=== PATIENT | female | born 1975 | race Caucasian/White ===

== ENCOUNTER 2018-12-31 16:37 | Emergency (ER) | payer SELFPAY ==
--- NOTE | 2018-12-31 17:23 | ER Document Report ---
ED Medical Screen (RME) - General Chief Complaint: Abdominal Pain Stated Complaint: ABDOMINAL PAIN Time Seen by Provider: 12/31/18 17:13 Notes: 43-year-old female with history of KASANDRA and cholecystectomy presents the emergency department with chief complaint of generalized abdominal pain. Patient cannot really specify where the pain is but after further clarification she said it started in the suprapubic area but is more generalized now. No fevers or chills, no nausea or vomiting, no urinary symptoms. Exam: Well-appearing in no acute distress, lungs are clear to auscultation in all haro, no CVAT bilateral I have greeted and performed a rapid initial assessment of this patient. A comprehensive ED assessment and evaluation of the patient, analysis of test results and completion of medical decision making process will be conducted by an additional ED providers. - Related Data Allergies/Adverse Reactions: Tetracyclines Allergy (Verified 12/31/18 17:02) acetaminophen [From Percocet] Adverse Reaction (Verified 12/31/18 17:02) naproxen [From Aleve] Adverse Reaction (Verified 12/31/18 17:02) oxycodone [From Percocet] Adverse Reaction (Verified 12/31/18 17:02) Physical Exam - Vital signs Vitals: Temp Pulse Resp BP Pulse Ox 98.6 F 90 20 151/89 H 98 12/31/18 16:48 12/31/18 16:48 12/31/18 16:48 12/31/18 16:48 12/31/18 16:48 Course - Vital Signs Vital signs: Temp Pulse Resp BP Pulse Ox 98.6 F 90 20 151/89 H 98 12/31/18 16:48 12/31/18 16:48 12/31/18 16:48 12/31/18 16:48 12/31/18 16:48
[2018-12-31 18:24] LABS: APPEARANCE,URINE CLOUDY; BILIRUBIN,URINE NEGATIVE (NEGATIVE); COLOR,URINE YELLOW; GLUCOSE, URINE NEGATIVE (NEGATIVE); KETONES,URINE NEGATIVE (NEGATIVE); LEUKOCYTE ESTERASE,URINE MODERATE (NEGATIVE); NITRITE,URINE NEGATIVE (NEGATIVE); PROTEIN,URINE 100 mg/dL (NEGATIVE); URINE SPECIFIC GRAVITY 1.014; UROBILINOGEN,URINE NEGATIVE mg/dL (<2.0)
[2018-12-31 18:34] LABS: ABSOLUTE BASOPHILS # (AUTO) 0.1 10^3/uL (0.0-0.2); ABSOLUTE EOSINOPHILS # (AUTO) 0.2 10^3/uL (0.0-0.6); ABSOLUTE LYMPHOCYTES (AUTO) 3.2 10^3/uL (0.5-4.7); BASOPHILS % (AUTO) 0.8 % (0-2); EOSINOPHILS % (AUTO) 1.1 % (0-6); HEMATOCRIT 46.4 % (36.0-47.0); HEMOGLOBIN 15.9 g/dL (12.0-15.5); LYMPHOCYTES % (AUTO) 20.4 % (13-45); MEAN CORPUSCULAR HEMOGLOBIN 29.8 pg (27.0-33.4); MEAN CORPUSCULAR HGB CONC 34.2 g/dL (32.0-36.0); MEAN CORPUSCULAR VOLUME 87 fl (80-97); MONOCYTES % (AUTO) 6.6 % (3-13); PLATELET COUNT 164 10^3/uL (150-450); RED BLOOD COUNT 5.32 10^6/uL (3.72-5.28); SEGMENTED NEUTROPHILS % (AUTO) 71.1 % (42-78); TOTAL CELLS COUNTED % (AUTO) 100 %; WHITE BLOOD COUNT 15.5 10^3/uL (4.0-10.5)
[2018-12-31 18:45] LABS: ALBUMIN 4.4 g/dL (3.5-5.0); ALKALINE PHOSPHATASE 57 U/L (38-126); ANION GAP 10 (5-19); ASPARTATE AMINO TRANSFERASE 27 U/L (14-36); BILIRUBIN,DIRECT 0.1 mg/dL (0.0-0.4); BILIRUBIN,TOTAL 0.4 mg/dL (0.2-1.3); BLOOD UREA NITROGEN 8 mg/dL (7-20); CALCIUM 9.9 mg/dL (8.4-10.2); CARBON DIOXIDE 25 mmol/L (22-30); CHLORIDE 109 mmol/L (98-107); GLUCOSE 92 mg/dL (75-110); POTASSIUM 4.1 mmol/L (3.6-5.0); TOTAL PROTEIN 7.9 g/dL (6.3-8.2)
[2018-12-31] MEDS ORDERED: CEFTRIAXONE 1 GM/D5W RTU 1 GM/50 ML RTUPB IV ONE (19:02)
[2018-12-31] MEDS ORDERED: IBUPROFEN 800 MG TABLET PO ONE (19:33)
--- NOTE | 2018-12-31 19:59 | ER Document Report ---
ED General - General Chief Complaint: Abdominal Pain Stated Complaint: ABDOMINAL PAIN Time Seen by Provider: 12/31/18 17:13 Notes: 43-year-old lady presents with abdominal pain this began early this morning a suprapubic pain and is spread to the entire lower abdomen. Left greater than right. No shortness of breath nausea vomiting diarrhea. No fever. History of hysterectomy but no other surgeries. Passing flatus. - Related Data Allergies/Adverse Reactions: Tetracyclines Allergy (Verified 12/31/18 17:02) acetaminophen [From Percocet] Adverse Reaction (Verified 12/31/18 17:02) naproxen [From Aleve] Adverse Reaction (Verified 12/31/18 17:02) oxycodone [From Percocet] Adverse Reaction (Verified 12/31/18 17:02) Past Medical History - Social History Smoking Status: Current Every Day Smoker Family History: None Patient has suicidal ideation: No Patient has homicidal ideation: No Past Surgical History: Reports: Hx Appendectomy Review of Systems - Review of Systems Notes: REVIEW OF SYSTEMS GEN: Denies fever, chills, weight loss ENT: Denies sore throat, nasal discharge, ear pain EYES: Denies blurry vision, eye pain, discharge CV: Denies chest pain, palpitations, edema RESP: Denies cough, shortness of breath, wheezing GI: As per HPI MSK: Denies joint pain/swelling, edema, SKIN: Denies rash, skin lesions LYMPH: Denies swollen glands/lymph nodes NEURO: Denies headache, focal weakness or numbness, dizziness PSYCH: Denies depression, suicidal or homicidal ideation PHYSICAL EXAMINATION General: No acute distress, well-nourished Head: Atraumatic, normocephalic ENT: Mouth normal, oropharynx moist, no exudates or tonsillar enlargement Eyes: Conjunctiva normal, pupils equal, lids normal Neck: No JVD, supple, no guarding CVS: Normal rate, regular rhythm, no murmurs Resp: No resp distress, equal and normal breath sounds bilaterally GI: Nondistended, soft, no tenderness to palpation, no rebound or guarding Ext: No deformities, no edema, normal range of motion in upper and lower ext Back: No CVA or midline TTP Skin: No rash, warm Lymphatic: No lymphadeopathy noted Neuro: Awake, alert. Face symmetric. GCS 15. Physical Exam - Vital signs Vitals: Temp Pulse Resp BP Pulse Ox 98.6 F 90 20 151/89 H 98 12/31/18 16:48 12/31/18 16:48 12/31/18 16:48 12/31/18 16:48 12/31/18 16:48 Course - Re-evaluation Re-evalutation: 12/31/18 23:31 Lower abdominal pain without tenderness or fever. Patient does have elevated white count. Her urine is floridly infected. She has no flank pain or back pain to suggest kidney stone, no upper abdominal tenderness to suggest upper abdominal process, and sources clearly her urine. CT was ordered at triage but this was canceled. She is refusing medicine for pain or nausea. She is given IV Rocephin. She, after receiving antibiotics asked for discharge meds including ibuprofen and Phenergan but was still refusing in the ED as she was not having symptoms. She was prescribed to generation cyclosporine for home. She was given Return precautions. I have discussed with the patient there likely diagnosis, aftercare plan, follow-up plans and my usual and customary return precautions. They verbalized understanding of this. - Vital Signs Vital signs: Temp Pulse Resp BP Pulse Ox 97.6 F 76 18 168/82 H 98 12/31/18 20:05 12/31/18 20:05 12/31/18 20:05 12/31/18 20:05 12/31/18 20:05 - Laboratory Result Diagrams: 12/31/18 18:14 12/31/18 18:14 Laboratory results interpreted by me: 12/31/18 12/31/18 12/31/18 17:29 18:14 18:14 WBC 15.5 H RBC 5.32 H Hgb 15.9 H Absolute Neuts (auto) 11.0 H Chloride 109 H Urine Protein 100 H Urine Blood MODERATE H Ur Leukocyte Esterase MODERATE H Discharge - Discharge Clinical Impression: Urinary tract infection, site not specified Qualifiers: Urinary tract infection type: acute cystitis Hematuria presence: without hematuria Qualified Code(s): N30.00 - Acute cystitis without hematuria Condition: Good Disposition: HOME, SELF-CARE Instructions: Urinary Tract Infection ([facility]) Additional Instructions: Your testing in the emergency department suggest a urinary tract infection. We did not do a CAT scan because you are not having abdominal tenderness or fever. That said, if therapy we have prescribed is not working and you are getting worse anyway need to return the emergency room immediately, as there may be other condition happening. Prescriptions: Cefuroxime Axetil [Ceftin 500 mg Tablet] 1 tab PO BID #20 tablet Ibuprofen [Motrin 600 Mg Tablet] 600 mg PO TID #15 tablet Promethazine HCl [Phenergan 25 mg Tablet] 1 - 2 tab PO Q6H PRN #15 tablet PRN Reason:
[2018-12-31 20:06] VITALS: BP 168/82
== END 2018-12-31 20:12 | disposition home or self-care (01) ==
LOC: ER 16:37
DX: N30.00 Acute cystitis without hematuria (principal); D72.829 Elevated white blood cell count, unspecified; F17.200 Nicotine dependence, unspecified, uncomplicated; Z88.1 Allergy status to other antibiotic agents
CPT/HCPCS: 99284; 96365; 36415; 83690; 85025; 80053; 81001; J0696

== ENCOUNTER 2019-02-06 12:41 | Emergency (ER) | payer OTHER ==
--- NOTE | 2019-02-06 13:08 | ER Document Report ---
ED Medical Screen (RME) - General Chief Complaint: Eye Problem Stated Complaint: BLURRY VISION Time Seen by Provider: 02/06/19 13:03 Primary Care Provider: SOBEIDA LUNA DO [ACTIVE STAFF] - Follow up tomorrow Mode of Arrival: Ambulatory Information source: Patient Notes: 43-year-old female presented to ED for complaint of blurry vision to the left eye. She had some hairstyling solution splashed in her eye yesterday. She states she still has blurry vision to the left eye today. She is a hairstylist. She states her eye continues to be sore and she has blurry vision. Patient states she was not wearing her contacts when this happened and she does not have them in now and has not put them in since this happened. She states the solution got on her glasses and her eye. - HPI Onset: Yesterday Onset/Duration: Sudden Quality of pain: Other - Sore Pain Level: 1 Associated Symptoms: Other - Sore to the left eye Exacerbated by: Denies Relieved by: Denies Similar symptoms previously: Yes Recently seen / treated by doctor: No - Related Data Smoking: Cigarettes - Half pack a day Frequency of alcohol use: Rare Drug Abuse: None Allergies/Adverse Reactions: Tetracyclines Allergy (Verified 02/06/19 13:14) naproxen [From Aleve] Adverse Reaction (Verified 02/06/19 13:14) oxycodone [From Percocet] Adverse Reaction (Verified 02/06/19 13:14) Past Medical History - General Information source: Patient - Social History Cigarette use (# per day): Yes - Half pack a day Chew tobacco use (# tins/day): No Frequency of alcohol use: None Drug Abuse: None Occupation: [employer] Lives with: Spouse/Significant other Family history: Reviewed & Not Pertinent - Past Medical History Cardiac Medical History: Reports: Hx Hypertension Pulmonary Medical History: Reports: None EENT Medical History: Reports: None Neurological Medical History: Reports: None Endocrine Medical History: Reports: None Renal/ Medical History: Reports: Hx Ovarian Cysts Malignancy Medical History: Reports: None GI Medical History: Reports: None Musculoskeltal Medical History: Reports Hx Arthritis, Reports Hx Musculoskeletal Trauma Skin Medical History: Reports None Psychiatric Medical History: Reports: Hx Attention Deficit Hyperactivity Disorder Traumatic Medical History: Reports: Hx Fractures - Foot Infectious Medical History: Reports: None Past Surgical History: Reports: Hx Cholecystectomy, Hx Hysterectomy - Immunizations Immunizations up to date: No Hx Diphtheria, Pertussis, Tetanus Vaccination: No Review of Systems - Review of Systems Constitutional: No symptoms reported EENT: Blurred vision Cardiovascular: No symptoms reported Respiratory: No symptoms reported Gastrointestinal: No symptoms reported Genitourinary: No symptoms reported Female Genitourinary: No symptoms reported Musculoskeletal: No symptoms reported Skin: No symptoms reported Hematologic/Lymphatic: No symptoms reported Neurological/Psychological: No symptoms reported -: Yes All other systems reviewed and negative Physical Exam - Vital signs Vitals: Temp Pulse Resp BP Pulse Ox 98.5 F 92 18 155/98 H 97 02/06/19 12:57 02/06/19 12:57 02/06/19 12:57 02/06/19 12:57 02/06/19 12:57 Interpretation: Normal - General General appearance: Appears well, Alert - HEENT Head: Normocephalic, Atraumatic Eyes: Normal Pupils: PERRL Ears: Normal External canal: Normal Tympanic membrane: Normal Sinus: Normal Nasal: Normal Mouth/Lips: Normal Mucous membranes: Normal Pharynx: Normal Neck: Normal - Respiratory Respiratory status: No respiratory distress Chest status: Nontender Breath sounds: Normal Chest palpation: Normal - Cardiovascular Rhythm: Regular Heart sounds: Normal auscultation Murmur: No - Abdominal Inspection: Normal Distension: No distension Bowel sounds: Normal Tenderness: Nontender Organomegaly: No organomegaly - Back Back: Normal, Nontender - Extremities General upper extremity: Normal inspection, Nontender, Normal color, Normal ROM, Normal temperature General lower extremity: Normal inspection, Nontender, Normal color, Normal ROM, Normal temperature, Normal weight bearing. No: Mary Grace's sign - Neurological Neuro grossly intact: Yes Cognition: Normal Orientation: AAOx4 [place] Coma Scale Eye Opening: Spontaneous [place] Coma Scale Verbal: Oriented [place] Coma Scale Motor: Obeys Commands [place] Coma Scale Total: 15 Speech: Normal Motor strength normal: LUE, RUE, LLE, RLE Sensory: Normal - Psychological Associated symptoms: Normal affect, Normal mood - Skin Skin Temperature: Warm Skin Moisture: Dry Skin Color: Normal Course - Re-evaluation Re-evalutation: 02/06/19 19:46 Discussed history and assessment with Dr. Lemons. He stated that erythromycin or antibiotic drops to either one would be sufficient until tomorrow when she can follow-up with ophthalmology. Patient was prescribed erythromycin ointment for her eye until followed up with some allergy. I did instruct patient to call ophthalmology first thing in the morning. She did verbalize understanding and agreement with treatment plan patient was discharged home. - Vital Signs Vital signs: Temp Pulse Resp BP Pulse Ox 98.5 F 92 18 140/80 H 97 02/06/19 12:57 02/06/19 12:57 02/06/19 12:57 02/06/19 13:13 02/06/19 12:57 Doctor's Discharge - Discharge Clinical Impression: solution splashed in left eye Condition: Stable Disposition: HOME, SELF-CARE Additional Instructions: You were seen today after splashing solution in your left eye yesterday. You state you have had some blurred vision since then. Please follow-up with the filling hauler weaving tomorrow as we discussed and use the ointment 4 times a day until you follow-up with filling hauler weaving. ANTIBIOTIC THERAPY: You have been given an antibiotic prescription. It's important that you take all the medication, unless instructed otherwise by your physician. Failure to complete the entire course can result in relapse of your condition. Common side effects of antibiotics include nausea, intestinal cramping, or diarrhea. Women may develop vaginal yeast infections, and babies can get yeast (thrush) in the mouth following the use of antibiotics. Contact your physician if you develop significant side effects from this medication. Allergy to this antibiotic can result in hives, wheezing, faintness, or itching. If symptoms of allergy occur, stop the medication and call the doctor. Erythromycin You have been prescribed an antibiotic of the erythromycin class. These antibiotics are used for many infections, especially in penicillin-allergic patients. They're particularly useful for infections of the respiratory system. The medication will be most effective if taken before or at least two hours after meals. However, many persons will have nausea or stomach cramping with erythromycin. If this occurs, try taking the medicine with food. If the side effects are still intolerable, contact your doctor. You should not take erythromycin with non-sedating antihistamines such as Seldane or Hismanal. Call the doctor at once if you develop rash, itching, shortness of breath, or lightheadedness. FOLLOW-UP CARE: If you have been referred to a physician for follow-up care, call the physicians office for an appointment as you were instructed or within the next two days. If you experience worsening or a significant change in your symptoms, notify the physician immediately or return to the Emergency Department at any time for re-evaluation. Prescriptions: Erythromycin Base [Erythromycin Oph 1 gm Oint Ud] 1 applic OS QID #2 tube Referrals: SOBEIDA LUNA DO [ACTIVE STAFF] - Follow up tomorrow
[2019-02-06 13:14] VITALS: BP 140/80
[2019-02-06] MEDS ORDERED: ERYTHROMYCIN 0.5% OPH OINTMENT 3.5 GM (ER DISP) OS PRN (13:43)
== END 2019-02-06 13:55 | disposition home or self-care (01) ==
LOC: ER 12:41
DX: Z77.098 Contact with and (suspected) exposure to other hazardous, chiefly nonmedicinal, chemicals (principal); H53.8 Other visual disturbances; I10 Essential (primary) hypertension; Z72.0 Tobacco use; Z88.1 Allergy status to other antibiotic agents
CPT/HCPCS: 99283

== ENCOUNTER 2019-05-19 12:14 | Emergency (ER) | payer OTHER ==
--- NOTE | 2019-05-19 13:15 | ER Document Report ---
ED Medical Screen (RME) - General Chief Complaint: Swelling of Lower Extremity Stated Complaint: HAND/FEET SWELLING NECK PAIN Time Seen by Provider: 05/19/19 13:06 Mode of Arrival: Ambulatory Information source: Patient Notes: Otherwise healthy 43-year-old female presenting to the emergency department chief complaint of bilateral hand and feet swelling. Patient also reports palpitations and dyspnea on exertion. She denies any personal cardiac history but states that she is concerned she is having a cardiac issue as her mother had a heart attack around this age. She denies any chest pain. Heart sounds S1-S2 present, normal rate, normal rhythm. Lung sounds clear and equal bilaterally. I have greeted and performed a rapid initial assessment of this patient. A comprehensive ED assessment and evaluation of the patient, analysis of test results and completion of the medical decision making process will be conducted by additional ED providers. I have specifically instructed the patient or family members with the patient to immediately return to any nursing staff should anything change in the patient's condition or with their chief complaint. TRAVEL OUTSIDE OF THE [place] IN LAST 30 DAYS: No - Related Data Allergies/Adverse Reactions: Tetracyclines Allergy (Verified 02/06/19 13:14) naproxen [From Aleve] Adverse Reaction (Verified 02/06/19 13:14) oxycodone [From Percocet] Adverse Reaction (Verified 02/06/19 13:14) Home Medications: adderall, spirolactone Past Medical History - Social History Family history: Reviewed & Not Pertinent - Past Medical History Cardiac Medical History: Reports: Hx Hypertension Renal/ Medical History: Reports: Hx Ovarian Cysts Musculoskeltal Medical History: Reports Hx Arthritis, Reports Hx Musculoskeletal Trauma Psychiatric Medical History: Reports: Hx Attention Deficit Hyperactivity Disorder Traumatic Medical History: Reports: Hx Fractures - Foot Past Surgical History: Reports: Hx Appendectomy, Hx Cholecystectomy, Hx Hysterectomy - Immunizations Immunizations up to date: No Hx Diphtheria, Pertussis, Tetanus Vaccination: No Physical Exam - Vital signs Vitals: Temp Pulse Resp BP Pulse Ox 98.5 F 92 16 169/91 H 97 05/19/19 12:20 05/19/19 12:20 05/19/19 12:20 05/19/19 12:20 05/19/19 12:20 Course - Vital Signs Vital signs: Temp Pulse Resp BP Pulse Ox 98.5 F 92 16 169/91 H 97 05/19/19 12:20 05/19/19 12:20 05/19/19 12:20 05/19/19 12:20 05/19/19 12:20
[2019-05-19 13:36] LABS: ABSOLUTE BASOPHILS # (AUTO) 0.1 10^3/uL (0.0-0.2); ABSOLUTE EOSINOPHILS # (AUTO) 0.2 10^3/uL (0.0-0.6); ABSOLUTE LYMPHOCYTES (AUTO) 3.7 10^3/uL (0.5-4.7); ABSOLUTE MONOCYTES (AUTO) 0.8 10^3/uL (0.1-1.4); ABSOLUTE NEUT (AUTO) 4.8 10^3/uL (1.7-8.2); BASOPHILS % (AUTO) 0.9 % (0-2); EOSINOPHILS % (AUTO) 2.4 % (0-6); HEMATOCRIT 48.6 % (36.0-47.0); HEMOGLOBIN 17.3 g/dL (12.0-15.5); LYMPHOCYTES % (AUTO) 38.6 % (13-45); MEAN CORPUSCULAR HEMOGLOBIN 31.3 pg (27.0-33.4); MEAN CORPUSCULAR HGB CONC 35.6 g/dL (32.0-36.0); MEAN CORPUSCULAR VOLUME 88 fl (80-97); PLATELET COUNT 159 10^3/uL (150-450); RED BLOOD COUNT 5.53 10^6/uL (3.72-5.28); SEGMENTED NEUTROPHILS % (AUTO) 50.1 % (42-78); TOTAL CELLS COUNTED % (AUTO) 100 %; WHITE BLOOD COUNT 9.5 10^3/uL (4.0-10.5)
--- NOTE | 2019-05-19 13:51 | RADIOLOGY REPORT (SQ) ---
EXAM DESCRIPTION: CHEST 2 VIEWS COMPLETED DATE/TIME: 05/19/2019 1:40 pm REASON FOR STUDY: eval for chf COMPARISON: None. TECHNIQUE: Frontal and lateral radiographic views of the chest acquired. NUMBER OF VIEWS: Two view. LIMITATIONS: None. FINDINGS: LUNGS AND PLEURA: No opacities, masses or pneumothorax. No pleural effusion. MEDIASTINUM AND HILAR STRUCTURES: No masses or contour abnormalities. HEART AND VASCULAR STRUCTURES: Heart normal size. No evidence for failure. BONES: No acute findings. HARDWARE: None in the chest. OTHER: No other significant finding. IMPRESSION: NO SIGNIFICANT RADIOGRAPHIC FINDING IN THE CHEST. TECHNICAL DOCUMENTATION: JOB ID: [id number] 2010 [employer] All Rights Reserved Reading location - IP/workstation name: [email or web address]
[2019-05-19 14:00] LABS: ALBUMIN 4.6 g/dL (3.5-5.0); ALKALINE PHOSPHATASE 57 U/L (38-126); ANION GAP 8 (5-19); BILIRUBIN,DIRECT 0.2 mg/dL (0.0-0.4); BILIRUBIN,TOTAL 0.4 mg/dL (0.2-1.3); BLOOD UREA NITROGEN 7 mg/dL (7-20); CARBON DIOXIDE 28 mmol/L (22-30); CHLORIDE 106 mmol/L (98-107); GLUCOSE 83 mg/dL (75-110); POTASSIUM 4.1 mmol/L (3.6-5.0); TOTAL PROTEIN 8.3 g/dL (6.3-8.2)
[2019-05-19 14:02] LABS: ASPARTATE AMINO TRANSFERASE 34 U/L (14-36); CALCIUM 9.6 mg/dL (8.4-10.2)
[2019-05-19 14:11] LABS: NT PRO BNP < 11 pg/mL (<125); TROPONIN I < 0.012 ng/mL
[2019-05-19 14:16] LABS: FREE T3 4.02 pg/mL (2.77-5.27); FREE T4 (FREE THYROXINE) 0.95 ng/dL (0.78-2.19)
[2019-05-19 14:30] LABS: THYROID STIMULATING HORMONE 1.26 uIU/mL (0.47-4.68)
--- NOTE | 2019-05-19 14:40 | ER Document Report ---
ED General - General Chief Complaint: Swelling of Lower Extremity Stated Complaint: HAND/FEET SWELLING NECK PAIN Time Seen by Provider: 05/19/19 13:06 Mode of Arrival: Ambulatory Notes: Patient is a 43-year-old white female with a past medical history of PCOS, prior total hysterectomy, ADHD on Adderall and intermittent episodes of elevated blood pressure, undiagnosed as hypertension without any medications who presents to the emergency department with a chief complaint of bilateral hand and feet pain swelling and numbness/tingling that began about a week ago. She states it is worse in the morning when she wakes and the swelling and pain improves throughout the day. She states she has baseline numbness in the fingertips of the bilateral hands. She denies any fall, injury or trauma. Denies any chest pain or shortness of breath. She states she was discussing these symptoms with her mother who has an extensive cardiovascular history and advised she come to the emergency department to be evaluated. Patient denies any swelling here today. Denies any cough, chest pain, shortness of breath, history of DVT or PE, hemoptysis, calf pain or tenderness, recent travel, recent surgeries or recent history of immobilization. She has no history of cancer. She is a current everyday smoker about a half a pack to 1 pack/day. She denies any hormone replacement therapies but takes spironolactone for history of PCOS. TRAVEL OUTSIDE OF THE [place] IN LAST 30 DAYS: No - Related Data Allergies/Adverse Reactions: Tetracyclines Allergy (Verified 02/06/19 13:14) naproxen [From Aleve] Adverse Reaction (Verified 02/06/19 13:14) oxycodone [From Percocet] Adverse Reaction (Verified 02/06/19 13:14) Home Medications: adderall, spirolactone Past Medical History - General Information source: Patient - Social History Smoking Status: Current Every Day Smoker Family History: CAD Patient has suicidal ideation: No Patient has homicidal ideation: No - Past Medical History Cardiac Medical History: Reports: Hx Hypertension Renal/ Medical History: Reports: Hx Ovarian Cysts Musculoskeletal Medical History: Reports Hx Arthritis, Reports Hx Musculoske letal Trauma Psychiatric Medical History: Reports: Hx Attention Deficit Hyperactivity Disorder Traumatic Medical History: Reports: Hx Fractures - Foot Past Surgical History: Reports: Hx Appendectomy, Hx Cholecystectomy, Hx Hy sterectomy - Immunizations Immunizations up to date: No Hx Diphtheria, Pertussis, Tetanus Vaccination: No Review of Systems - Review of Systems Cardiovascular: No symptoms reported Respiratory: No symptoms reported Musculoskeletal: Ankle swelling, Other - Hand pain and swelling -: Yes All other systems reviewed and negative Physical Exam - Vital signs Vitals: Temp Pulse Resp BP Pulse Ox 98.5 F 92 16 169/91 H 97 05/19/19 12:20 05/19/19 12:20 05/19/19 12:20 05/19/19 12:20 05/19/19 12:20 - General General appearance: Appears well, Alert In distress: None - HEENT Head: Normocephalic, Atraumatic Eyes: Normal Conjunctiva: Normal Extraocular movements intact: Yes Eyelashes: Normal Pupils: PERRL Ears: Normal External canal: Normal Tympanic membrane: Normal Nasal: Normal Mouth/Lips: Normal Mucous membranes: Normal Pharynx: Normal Neck: Normal. No: Thyromegally - Respiratory Respiratory status: No respiratory distress Chest status: Nontender Breath sounds: Normal Chest palpation: Normal - Cardiovascular Rhythm: Regular Heart sounds: Normal auscultation - Extremities General upper extremity: Normal inspection, Nontender, Normal color, Normal ROM, Normal temperature General lower extremity: Normal inspection, Nontender, Normal color, Normal ROM, Normal temperature, Normal weight bearing. No: Mary Grace's sign - Neurological Neuro grossly intact: Yes Cognition: Normal Orientation: AAOx4 [place] Coma Scale Eye Opening: Spontaneous [place] Coma Scale Verbal: Oriented [place] Coma Scale Motor: Obeys Commands [place] Coma Scale Total: 15 Speech: Normal Motor strength normal: LUE, RUE, LLE, RLE Sensory: Normal Notes: Negative Tinel and Phalen's - Psychological Associated symptoms: Normal affect, Normal mood - Skin Skin Temperature: Warm Skin Moisture: Dry Skin Color: Normal Course - Re-evaluation Re-evalutation: 05/19/19 18:23 Initial EKG interpreted as no STEMI by attending. Repeat EKG showing no changes from prior. Both troponins negative. Patient is low risk per heart score, stable and appropriate for discharge and outpatient follow-up with her primary doctor. I counseled her at length regarding the importance of outpatient follow-up and advised that she return here or any ER immediately with any new, persistent or worsening symptoms. She verbalized understood and agreed. - Vital Signs Vital signs: Temp Pulse Resp BP Pulse Ox 98.5 F 92 21 H 134/76 H 97 05/19/19 12:20 05/19/19 12:20 05/19/19 16:01 05/19/19 16:00 05/19/19 16:01 - Laboratory Result Diagrams: 05/19/19 13:24 05/19/19 13:24 Laboratory results interpreted by me: 05/19/19 05/19/19 13:24 13:24 RBC 5.53 H Hgb 17.3 H Hct 48.6 H ALT 47 H Total Protein 8.3 H Discharge - Discharge Clinical Impression: Extremity edema, Neuropathy Condition: Stable Disposition: HOME, SELF-CARE Instructions: Neuropathy ([facility]), Edema, Peripheral ([facility]) Additional Instructions: Follow-up with your regular doctor in 2 to 3 days for reevaluation. Return here or any ER immediately with any new, persistent or worsening symptoms.
[2019-05-19 18:59] VITALS: BP 153/98
--- NOTE | 2019-05-19 19:03 | EKG REPORT ---
SEVERITY:- BORDERLINE ECG - SINUS RHYTHM BORDERLINE T WAVE ABNORMALITIES : Confirmed by: Juanis Mancilla 19-May-2019 19:03:07
--- NOTE | 2019-05-19 19:03 | EKG REPORT ---
SEVERITY:- NORMAL ECG - SINUS RHYTHM : Confirmed by: Juanis Mancilla 19-May-2019 19:03:12
== END 2019-05-19 19:00 | disposition home or self-care (01) ==
LOC: ER 12:14
DX: R60.9 Edema, unspecified (principal); G62.9 Polyneuropathy, unspecified; F17.200 Nicotine dependence, unspecified, uncomplicated; F90.9 Attention-deficit hyperactivity disorder, unspecified type; E28.2 Polycystic ovarian syndrome; Z79.899 Other long term (current) drug therapy; Z88.1 Allergy status to other antibiotic agents
CPT/HCPCS: 36415; 71046; 80053; 83880; 84439; 84443; 84481; 84484; 85025; 93005; 93010; 99284